=== PATIENT | female | born 1970 | race American Indian/Alaskan Native ===

== ENCOUNTER 2022-01-04 08:59 | Outpatient (CLI) | payer OTHER ==
--- NOTE | 2022-01-04 11:34 | Mammography Report ---
BILATERAL DIGITAL DIAGNOSTIC MAMMOGRAM , 01/04/2022 LEFT LIMITED BREAST ULTRASOUND CLINICAL INFORMATION / INDICATION: 51-year-old female presents for evaluation of palpable lump in the upper inner left breast. TECHNIQUE: Digital bilateral mammographic imaging was performed. Spot compression views were obtained . Limited ultrasound was performed. COMPARISON: Prior mammogram 11/05/2019, 07/19/2014 FINDINGS: Breast Density: The breasts are heterogeneously dense, which may obscure small masses. MAMMOGRAPHIC FINDINGS: No dominant mass, suspicious calcifications, or architectural distortion in ei ther breast. Spot compression views of the palpable area in the upper inner left breast is unremarkab le. No mammographic correlate for the palpable lump. Overall, no interval change. ULTRASOUND FINDINGS: Targeted ultrasound evaluation was performed of the area of interest. Sonograp hic evaluation of the palpable lump in the upper inner left breast demonstrates a [address] at 11:00, 7 cm from nipple. IMPRESSION: No mammographic or sonographic evidence of malignancy. A 4 mm simple cyst is noted in the general area of the palpable lump. Clinical correlation recommended for palpable lump. Follow up recommendation: Routine yearly screening mammogram. BI-RADS Category 2: BENIGN. A "normal" or negative report should not discourage follow up or biopsy of a clinically significant f inding. A written summary of these findings will be mailed to the patient. The patient will be entered into a mammography reporting system which will generate a reminder letter for the patient's next appointmen t at the appropriate interval. According to the [employer], yearly mammograms are recommended starting at age 40 and continuing as long as a woman is in good health. Breast MRI is recommended for women with an delvis roximately 20-25% or greater lifetime risk of breast cancer, including women with a strong family his tory of breast or ovarian cancer and women who have been treated for Hodgkin's disease. Signer Name: Velma Mon MD Signed: 01/04/2022 11:29 AM Workstation Name: [id number]
== END 2022-01-04 09:00 | disposition home or self-care (01) ==
LOC: MAMMO 08:59
PROVIDERS: ATTEND Internal Medicine
DX: N63.22 Unspecified lump in the left breast, upper inner quadrant (principal); N60.02 Solitary cyst of left breast
CPT/HCPCS: 77066